=== PATIENT | female | born 1995 | race African-American/Black ===

== ENCOUNTER 2017-05-10 14:41 | Emergency (ER) | payer MEDICAID ==
[~2017-05-10] VITALS: Ht 167.6 cm; Wt 58.0 kg
[2017-05-10 15:22] VITALS: BP 130/79
== END 2017-05-10 19:02 | disposition home or self-care (01) ==
LOC: ER 14:41
DX: T58.91XA Toxic effect of carbon monoxide from unspecified source, accidental (unintentional), initial encounter (principal); R51 Headache; R42 Dizziness and giddiness; Z88.0 Allergy status to penicillin; Y92.89 Other specified places as the place of occurrence of the external cause
CPT/HCPCS: 99283